=== PATIENT | male | born 1955 | race Two or more races ===

== ENCOUNTER 2017-07-20 05:13 | Day surgery (SDC) | payer OTHER ==
[~2017-07-20] VITALS: Ht 172.7 cm; Wt 74.8 kg
[2017-07-20] VITALS (13 sets, daily range): BP systolic 124–161; BP diastolic 79–95
[~2017-07-20 05:13] MED LIST: AMLODIPINE BESYL5 MG ORAL; ceFAZolin 1gm in D5W 55ml IVP ONE; celeBREX 200mg Cap **SURGERY PATIENTS ONLY ORAL ONE; oxyCONTIN 20mg tab ORAL ONE
[2017-07-20] MEDS ORDERED: DiphenhydrAMINE 50mg/ml Inj IVP PRN (06:45)
[2017-07-20] MEDS ORDERED: Norco 5mg/325mg tab ORAL PRN ×2 (06:45→15:01)
[2017-07-20] MEDS ORDERED: Metoclopramide 10mg/2ml Inj IVP PRN (06:45)
[2017-07-20] MEDS ORDERED: oxyCODONE HCL/Acetaminophen 5/325mg ORAL PRN (06:45)
[2017-07-20] MEDS ORDERED: Atropine Inj 1mg/10ml Syr IV PRN (06:45)
[2017-07-20] MEDS ORDERED: Midazolam 2mg/2ml Inj IVP PRN (06:45)
[2017-07-20] MEDS ORDERED: LORazepam Inj 2mg/ml 1ml IV PRN (06:45)
[2017-07-20] MEDS ORDERED: fentaNYL 100 mcg/2 mL IV PRN (06:45)
[2017-07-20] MEDS ORDERED: LR 1000ml 1,000 ML IVLG SCH (06:45)
[2017-07-20] MEDS ORDERED: Ketorolac 60mg Inj IV PRN (06:45)
[2017-07-20] MEDS ORDERED: Ketorolac 30mg Inj IV PRN (06:45)
[2017-07-20] MEDS ORDERED: Norco 7.5mg/325mg tab ORAL PRN (06:45)
[2017-07-20] MEDS ORDERED: Hydromorphone 0.5mg/0.5ml inj IVP PRN (06:45)
--- NOTE | 2017-07-20 06:55 | Anethesia Preoperative Eval ---
Anesthesia Pre-op PMH/ROS General Date of Evaluation: Jul 20, 2017 Time of Evaluation: 06:56 Anesthesiologist: Yaritza ASA Score: ASA 2 Mallampati Score Class I : Soft palate, uvula, fauces, pillars visible Class II: Soft palate, uvula, fauces visible Class III: Soft palate, base of uvula visible Class IV: Only hard plate visible Mallampati Classification: Class II Surgeon: Giles Diagnosis: L Leg Pain Surgical Procedure: L Leg Seroma Evacuation Anesthesia History: none Family History: no anesthesia problems Allergies: Coded Allergies: No Known Allergies (Unverified , 07/20/17) Medications: see eMAR Past Medical History Cardiovascular: Reports: HTN PSxH Narrative: L knee SX Anesthesia Pre-op Phys. Exam Physician Exam Last Vital Signs Date Time Temp Pulse Resp B/P (MAP) Pulse Ox O2 Delivery O2 Flow Rate FiO2 07/20/17 05:55 97.0 94 18 151/94 97 Room Air Constitutional: NAD Neurologic: CN 2-12 intact Cardiovascular: RRR Respiratory: CTA Gastrointestinal: S/NT/ND Airway Exam Mallampati Score: Class II MO: limited ROM: full Teeth: intact Anesthesia Pre-op A/P Risk Assessment & Plan Assessment: ASA 2 Plan: GA, BIS Status Change Before Surgery: No Pre-Antibiotics Dru Gram Ancef IV Given Within 1 Hr of Incision: Yes Time Given: 07:11 Joseph Vigil MD Jul 20, 2017 06:55
--- NOTE | 2017-07-20 06:57 | 48 Hour Post Anesthesia Eval ---
Post Anesthesia Evaluation Procedure: L Leg Seroma Evacuation Date of Evaluation: Jul 20, 2017 Time of Evaluation: 11:52 Blood Pressure Systolic: 178 0: 99 Pulse Rate: 92 Respiratory Rate: 18 Temperature (Fahrenheit): 98.6 O2 Sat by Pulse Oximetry: 96 Airway: patent Nausea: No Vomiting: No Pain Intensity: 2 Hydration Status: adequate Cardiopulmonary Status: Stable Mental Status/LOC: patient returned to baseline Follow-up Care/Observations: 0 Post-Anesthesia Complications: 0 Follow-up care needed: ready to discharge Joseph Vigil MD Jul 20, 2017 06:57
--- NOTE | 2017-07-20 06:57 | Immediate Post-Op Evaluation ---
Immediate Post-Op Evalulation Immediate Post-Op Evalulation Procedure: L Leg Seroma Evacuation Date of Evaluation: Jul 20, 2017 Time of Evaluation: 08:44 IV Fluids: 800 LR Blood Products: 0 Estimated Blood Loss: 25 Urinary Output: 0 Blood Pressure Systolic: 149 Blood Pressure Diastolic: 89 Pulse Rate: 78 Respiratory Rate: 16 O2 Sat by Pulse Oximetry: 97 Temperature (Fahrenheit): 98.8 Pain Score (1-10): 3 Nausea: No Vomiting: No Complications 0 Patient Status: awake, reacts, patent, extubated, none Hydration Status: adequate Dru Gram Ancef Iv Given Within 1 Hr of Incision: Yes Time Given: 07:11 Joseph Vigil MD Jul 20, 2017 06:57
[2017-07-20] MEDS ORDERED: D5W IVPB ONE ×2 (07:00→08:00)
[2017-07-20] MEDS ORDERED: oxyCONTIN 20mg tab ORAL ONE (07:00)
[2017-07-20] MEDS ORDERED: celeBREX 200mg Cap **SURGERY PATIENTS ONLY ORAL ONE (07:00)
[2017-07-20] MEDS ORDERED: Sodium Chloride 10ml vial INJ ONE (07:00)
[2017-07-20] MEDS ORDERED: LR 1000ml ONE (07:00)
[2017-07-20] MEDS ORDERED: Propofol 1,000mg/ 100ml btl IV ONE (07:00)
[2017-07-20] MEDS ORDERED: NS Irrig 1000ml ONE (07:00)
[2017-07-20] MEDS ORDERED: Midazolam 2mg/2ml Inj ONE (07:00)
[2017-07-20] MEDS ORDERED: Dexamethasone 4mg/ml vial ONE (07:00)
[2017-07-20] MEDS ORDERED: Lidocaine 1% MPF 10mg/ml 5ml ONE (07:00)
[2017-07-20] MEDS ORDERED: DOXYCYCLINE HYCLATE IVPB ONE ×2 (07:00→08:00)
[2017-07-20] MEDS ORDERED: Sterile Water Irrig 1000ml IRRIG ONE (07:00)
[2017-07-20] MEDS ORDERED: fentaNYL 100 mcg/2 mL IV ONE (07:00)
--- NOTE | 2017-07-20 07:00 | Pre-Procedure Note/Attestation ---
Pre-Procedure Note/Attestation Complete Prior to Procedure Planned Procedure: left Procedure Narrative: incision drainage left hip Indications for Procedure Pre-Operative Diagnosis: left hip seroma Attestation I attest that I discussed the nature of the procedure; its benefits; risks and complications; and alternatives (and the risks and benefits of such alternatives ), prior to the procedure, with the patient (or the patient's legal financial sales representative). I attest that, if there was a reasonable possibility of needing a blood transfusion, the patient (or the patient's legal financial sales representative) was given the [facility] standardized written summary, pursuant to the [place] [employer] Blood Safety Act ([place] Health and Safety Code # 1645, as amended). I attest that I re-evaluated the patient just prior to the surgery and that there has been no change in the patient's H&P, except as documented below: VIVIAN CASTRO Jul 20, 2017 07:00
--- NOTE | 2017-07-20 07:00 | Operative Note - PDOC ---
Operative Note Operative Note Pre-op Diagnosis: left hip seroma Procedure: Excision of seroma Post-op Diagnosis: same as pre-op plus Operative Findings: consistent w/pre-op dx studies Anesthesia: general Specimen: none Complications: none Condition: stable Estimated Blood Loss: none Implant(s) used?: VIVIAN Dyer Jul 20, 2017 07:00
[2017-07-20] MEDS ORDERED: Doxycycline 100mg Inj IV ONE ×2 (07:30→08:30)
[2017-07-20] MEDS ORDERED: Acetaminophen (Non formulary) 100 ML IV ONE (07:45)
[2017-07-20] MEDS ORDERED: NeoSporin Gu Irrig 1ml Amp IRRIG ONE (09:49)
[2017-07-20] MEDS ORDERED: Bacitracin 50000 Units Vial ONE (09:49)
[2017-07-20] MEDS ORDERED: D5 1/2NS 1,000 ML IV SCH (15:01)
[2017-07-20] MEDS ORDERED: Tylenol #3 tab (300mg/30mg) ORAL PRN (15:01)
[2017-07-20] MEDS ORDERED: HYDROmorphone 1mg/ml Carpuject SUBQ PRN (15:01)
--- NOTE | 2017-07-20 17:45 | Operative Note - Dictated ---
DATE OF OPERATION: 07/20/2017 PREOPERATIVE DIAGNOSIS: Left thigh seroma. POSTOPERATIVE DIAGNOSIS: Left thigh seroma. PROCEDURE: Complete excision of left thigh seroma measuring 20 cm x 10 cm. SURGEON: Braeden Skaggs M.D. ANESTHESIA: General. INDICATION FOR PROCEDURE: The patient is a pleasant 61-year-old gentleman, who has had recurrent seroma after a soft tissue injury to the left thigh. He has failed serial aspirations and given the fact that he had continued issues, he elected to undergo removal of seroma. Risks, limitations, expectations, and complications of the procedure were discussed in detail including infection, nerve or vessel damage, recurrence, continued symptoms, numbness, tingling, etc. All questions addressed. DESCRIPTION OF PROCEDURE: An informed consent was obtained. The patient was brought to the operating room and placed supine under general anesthesia. The patient was then carefully placed in the lateral decubitus position. Left thigh was prepped and draped in a sterile manner. A standard lateral skin incision was then made. The skin was incised, subcutaneous tissue was incised, and the fascia gaudencio was incised. Once the fascia gaudencio was incised, the seroma was completely adhered to the fascia gaudencio. The seroma measured approximately 20 cm in length and 10 cm in diameter. At this point, the capsule was identified and complete capsulotomy of the seroma was performed through this incision. Once this was done, the remaining surface was debrided with a bone rasp and along with electrocautery. Once that was done, doxycycline was then placed in to the soft tissues. A [place] drain was then placed in the anterior aspect of the cavity. The iliotibial band was approximated with #1 Vicryl sutures. Skin was closed with 2-0 Vicryl suture, 3-0 Monocryl sutures, and Dermabond dressing. Prior to closure, the drain was evaluated to ensure that it was not incorporated in to the stitches. Compression dressing was applied. The patient was awoken and taken to recovery room with stable vital signs. ESTIMATED BLOOD LOSS: 25 mL. COMPLICATIONS: None. SPECIMENS: Include encapsulated seroma. This was not sent off for analysis. EBL: None. IMPLANTS: None. Braeden Skaggs M.D. DR: KERRY JOB#: [id number] CC:
== END 2017-07-20 10:50 | disposition home or self-care (01) ==
LOC: SUR 05:13
DX: S70.12XA Contusion of left thigh, initial encounter (principal); I10 Essential (primary) hypertension; X58.XXXA Exposure to other specified factors, initial encounter; Y93.9 Activity, unspecified; Y92.9 Unspecified place or not applicable; E80.4 Gilbert syndrome
CPT/HCPCS: 27337; J0690; J1100; J2250; J2405; J2704; J3010; J3490; J7120; 94003; 94150